=== PATIENT | male | born 1965 | race Caucasian/White ===

== ENCOUNTER 2019-03-24 21:31 | Emergency (ER) | payer MEDICAID ==
[~2019-03-24] VITALS: Ht 170.2 cm; Wt 63.6 kg
[2019-03-24 21:40] VITALS: Ht 170.2 cm; Wt 63.6 kg
[2019-03-24] MEDS ORDERED: COREG6.25 MG PO (21:42)
[2019-03-24] MEDS ORDERED: BAYER CHEWABLE81 MG PO (21:42)
[2019-03-24] MEDS ORDERED: XARELTO10 MG PO (21:42)
[2019-03-24] MEDS ORDERED: NITROSTAT0.4 MG SL (21:43)
[2019-03-24] MEDS ORDERED: LIPITOR20 MG (21:43)
[2019-03-24 22:23] LABS: APPEARANCE CLEAR (CLEAR); BILIRUBIN NEGATIVE (NEGATIVE); COLOR YELLOW (YELLOW); GLUCOSE NEGATIVE (NEGATIVE); KETONE NEGATIVE (NEGATIVE); NITRITE NEGATIVE (NEGATIVE); PROTEIN TRACE mg/dL (NEGATIVE); SPECIFIC GRAVITY 1.025 (1.005-1.020); UROBILINOGEN NORMAL (NORMAL)
[2019-03-24 22:28] LABS: BACTERIA FEW /hpf (NEGATIVE); MUCUS <1+ /lpf (NONE SEEN); WHITE CELLS - URINE 0-5 /hpf (NEGATIVE)
[2019-03-24 22:53] VITALS: BP 127/83
== END 2019-03-24 22:54 | disposition home or self-care (01) ==
LOC: D.ER 21:31
PROVIDERS: Family Medicine
DX: Z11.3 Encounter for screening for infections with a predominantly sexual mode of transmission (principal)